=== PATIENT | female | born 1960 ===

== ENCOUNTER 2017-01-07 18:03 | Emergency (ER) | payer BC ==
[2017-01-07 18:59] VITALS: BP 121/71
--- NOTE | 2017-01-07 19:40 | UC ---
Laceration HPI - History Of Current Complaint Chief Complaint: UCLaceration Stated Complaint: RIGHT LEG LAC (DYE) Time Seen by Provider: 01/07/17 19:33 Hx Obtained From: Patient Laceration Location: Generalized - right lower dye. Mechanism Of Injury: Blunt Trauma - on the edge of a boat trying to climb in. Onset/Duration: Sudden Onset - 5:30 PM, Still Present Severity: Moderate Aggravating Factors: Movement Full Body (No Head): 1 - Stellate laceration 5.5x2.5x1 cm - Allergies/Home Medications Allergies/Adverse Reactions: Allergies Allergy/AdvReac Type Severity Reaction Status Date / Time No Known Allergies Allergy Verified 01/07/17 18:59 Home Medications: Home Medications Sulfamethox/Trimethoprim DS* [Bactrim DS 800/160 TAB*] 1 tab PO BID 01/07/17 [ History Confirmed 01/07/17] PMH/Surg Hx/FS Hx/Imm Hx Previously Healthy: Yes - Surgical History Surgical History: None - Family History Known Family History: Negative: Cardiac Disease, Hypertension, Diabetes - Social History Occupation: Employed Full-time Lives: With Family Alcohol Use: Weekly Substance Use Type: None Smoking Status (MU): Former Smoker Have You Smoked in the Last Year: No When Did the Patient Quit Smoking/Using Tobacco: 25 YRS Review of Systems All Other Systems Reviewed And Are Negative: Yes Physical Exam Triage Information Reviewed: Yes Appearance: Well-Appearing, No Pain Distress, Well-Nourished Vital Signs: Initial Vital Signs Temp 98.8 F 01/07/17 18:50 Pulse 71 01/07/17 18:50 Resp 16 01/07/17 18:50 BP 121/71 01/07/17 18:50 Pulse Ox 100 01/07/17 18:50 Vital Signs Reviewed: Yes Eyes: Positive: Conjunctiva Clear Neck exam: Normal Respiratory Exam: Normal Cardiovascular Exam: Normal Musculoskeletal Exam: Normal Neurological Exam: Normal Psychological Exam: Normal Skin: Positive: Other - laceration. Laceration Repair - Laceration Repair 1 Description: Irregular Laceration Size After Repair: Length (cm) - 8 cm total Debridement: Non-viable skin debrided. Type Injection: Local Anesthesia Used: 2.0% Lido Additive Used (in ml): Epi Cleansing Completed Via Routine Prep: Yes Irrigation With Pressure Irrigation Device: Yes Closure Material: Sutures Closure Method: Multilayer Suture Of: Skin - 11 sutures running left to right and up the middle part of the lacertation 8 sutures running right to left in the middle., SQ - 2 3-0 vicryl simple interrupted buried. Suture Type: Nylon - 4-0, Vicryl - 3-0 Laceration Course/Dx - Differential Dx - Laceration/Wound Differental Diagnoses: Hematoma, Laceration, Puncture Wound Provider Diagnoses: Open wound right lower leg. Complex laceration repair. Discharge - Discharge Plan Condition: Stable Disposition: HOME Patient Education Materials: Laceration (ED), Care For Your Stitches (ED) Referrals: Non Staff,Doctor [Primary Care Provider] - (12 days for suture removal.) Additional Instructions: It is ok to get it wet to shower but put antibiotic ointment on with telfa immediately after. Change the dressing twice a day and use the poncho wrap to hold the bandage on. Use Copp[employer]one Water[employer]ies Pure and Simple sunscreen for the rest of the summer to help with healing.
[2017-01-07] MEDS ORDERED: Lidocaine 2% W/EPI 1:100,000* 20 ML MDV INJ ONE (19:45)
[2017-01-07] MEDS ORDERED: Tetan/Diph/Pertus SYR(Tdap)* 0.5 ML SYR(BOOSTRIX) use SYR IM ONE (19:48)
== END 2017-01-07 20:57 | disposition home or self-care (01) ==
LOC: UCCORT 18:03
DX: S81.811A Laceration without foreign body, right lower leg, initial encounter (principal); Z87.891 Personal history of nicotine dependence; W22.8XXA Striking against or struck by other objects, initial encounter; Y93.39 Activity, other involving climbing, rappelling and jumping off; Y92.9 Unspecified place or not applicable
CPT/HCPCS: 13121; 90715; 99201; G0463

== ENCOUNTER 2017-01-09 10:09 | Emergency (ER) | payer BC ==
[2017-01-09 11:56] VITALS: BP 108/64
--- NOTE | 2017-01-09 12:19 | UC ---
HPI Wound/Suture Re-check - HPI Summary HPI Summary: 56 yo female 2 days s/p lac to right dye hit leg on pontoon boat today dye red still having significant pain using a can to ambulate still on antibiotic for right dye infection (bactrim bs) - History Of Current Complaint Chief Complaint: UCLaceration Stated Complaint: DYE LAC Time Seen by Provider: 01/09/17 12:10 Hx Obtained From: Patient Onset/Duration: Sudden Onset Severity: Moderate Pain Intensity: 8 Pain Scale Used: 0-10 Numeric - Allergies/Home Medications Allergies/Adverse Reactions: Allergies Allergy/AdvReac Type Severity Reaction Status Date / Time No Known Allergies Allergy Verified 01/07/17 18:59 PMH/Surg Hx/FS Hx/Imm Hx Previously Healthy: Yes - Surgical History Surgical History: None - Family History Known Family History: Negative: Cardiac Disease, Hypertension, Diabetes - Social History Alcohol Use: Weekly Substance Use Type: None Smoking Status (MU): Former Smoker Have You Smoked in the Last Year: No When Did the Patient Quit Smoking/Using Tobacco: 25 YRS Review of Systems Constitutional: Negative Skin: Negative Eyes: Negative ENT: Negative Respiratory: Negative Cardiovascular: Negative Gastrointestinal: Negative Genitourinary: Negative Motor: Negative Neurovascular: Negative Musculoskeletal: Negative Neurological: Negative Psychological: Negative All Other Systems Reviewed And Are Negative: Yes Physical Exam Triage Information Reviewed: Yes Appearance: Well-Appearing, No Pain Distress, Well-Nourished Vital Signs: Initial Vital Signs Temp 98.4 F 01/09/17 11:51 Pulse 85 01/09/17 11:51 Resp 18 01/09/17 11:51 BP 108/64 01/09/17 11:51 Pulse Ox 99 01/09/17 11:51 Vital Signs Reviewed: Yes Eyes: Positive: Conjunctiva Clear ENT: Positive: Hearing grossly normal. Negative: Nasal congestion, Nasal drainage, Trismus, Muffled/hoarse voice Respiratory: Positive: Lungs clear, Normal breath sounds, No respiratory distress, No accessory muscle use Cardiovascular: Positive: RRR, No Murmur Musculoskeletal: Positive: ROM Intact, No Edema Neurological: Positive: Alert Psychological Exam: Normal Skin Exam: Other - see image Course/Dx - Course Course Of Treatment: WILL RECHECK WITH ME ON 01/11 IN [facility] - Differential Dx - Laceration/Wound Provider Diagnoses: RIGHT DYE CELLULITIS Discharge - Discharge Plan Condition: Stable Disposition: HOME Prescriptions: Cephalexin CAP* [Keflex CAP*] 500 mg PO QID #28 cap Ibuprofen TAB* [Motrin TAB*] 600 mg PO Q6H PRN #40 tab PRN Reason: Pain Patient Education Materials: Cellulitis (ED) Referrals: Non Staff,Doctor [Primary Care Provider] - Additional Instructions: rest elevate motrin as needed for pain a culture is pending gently clean twice daily with soap and water antibiotic ointment (bactroban) thin film non stick dressing you may keep laceration open to air periodically RECHECK IN 2 DAYS Images Front/Back of Body, Lg ([place]): 1 - area of erythema surrounding right dye
--- NOTE | 2017-01-09 12:47 | RAD ---
Indication: Trauma/cellulitis. Comparison: No relevant prior exams available on the [facility] PACS for comparison. Technique: AP and lateral views RIGHT lower leg. REPORT AND IMPRESSION: Soft tissue swelling most prominent anteriorly and laterally. No conspicuous foreign body or subcutaneous emphysema. Negative for fracture or malalignment. Unremarkable osseous structures.
[2017-01-09] MEDS ORDERED: Cephalexin CAP* 500 MG PO ONE (12:50)
[2017-01-09] MEDS ORDERED: Mupirocin 2% OINT* TUBE TOPICAL ONE (12:51)
== END 2017-01-09 13:15 | disposition home or self-care (01) ==
LOC: UCEAST 10:09
DX: L03.115 Cellulitis of right lower limb (principal); Z87.891 Personal history of nicotine dependence
CPT/HCPCS: 87070; 87205; 99213; A9270-GY; G0463

== ENCOUNTER 2017-01-11 14:50 | Emergency (ER) | payer BC ==
[2017-01-11 15:09] VITALS: BP 100/50
--- NOTE | 2017-01-11 15:53 | UC ---
HPI Wound/Suture Re-check - HPI Summary HPI Summary: seen by me 48 hrs ago with cellulitis s/p lac repair started on keflex swelling and redness worse no fever no myalgias no n/v/d - History Of Current Complaint Chief Complaint: UCSkin Stated Complaint: RE-CK SUTURES (DR CLIFTON) Time Seen by Provider: 01/11/17 15:22 Hx Obtained From: Patient Onset/Duration: Sudden Onset Severity: Mild Pain Intensity: 4 Pain Scale Used: 0-10 Numeric - Allergies/Home Medications Allergies/Adverse Reactions: Allergies Allergy/AdvReac Type Severity Reaction Status Date / Time No Known Allergies Allergy Verified 01/11/17 15:09 PMH/Surg Hx/FS Hx/Imm Hx Previously Healthy: Yes - Surgical History Surgical History: None - Family History Known Family History: Negative: Cardiac Disease, Hypertension, Diabetes - Social History Alcohol Use: Weekly Substance Use Type: None Smoking Status (MU): Former Smoker Have You Smoked in the Last Year: No When Did the Patient Quit Smoking/Using Tobacco: 25 YRS Review of Systems Constitutional: Negative Skin: Negative Eyes: Negative ENT: Negative Respiratory: Negative Cardiovascular: Negative Gastrointestinal: Negative Genitourinary: Negative Motor: Negative Neurovascular: Negative Musculoskeletal: Negative Neurological: Negative Psychological: Negative All Other Systems Reviewed And Are Negative: Yes Physical Exam Triage Information Reviewed: Yes Appearance: Well-Appearing Vital Signs: Initial Vital Signs Temp 99.6 F 01/11/17 15:05 Pulse 75 01/11/17 15:05 Resp 16 01/11/17 15:05 BP 100/50 01/11/17 15:05 Pulse Ox 100 01/11/17 15:05 Vital Signs Reviewed: Yes Eyes: Positive: Conjunctiva Clear ENT: Positive: Hearing grossly normal. Negative: Nasal congestion, Nasal drainage, Trismus, Muffled/hoarse voice Neck: Positive: Supple Respiratory: Positive: No respiratory distress, No accessory muscle use Cardiovascular: Positive: Pulses Normal Musculoskeletal: Positive: ROM Intact, Edema @ Neurological: Positive: Alert Psychological Exam: Normal Skin Exam: Other - worsening cellulitis/increased redness and swelling Course/Dx - Course Course Of Treatment: sutures removed. recultured - Differential Dx - Laceration/Wound Provider Diagnoses: cellulitis right dye Discharge - Discharge Plan Condition: Stable Disposition: HOME Patient Education Materials: Cellulitis (ED) Referrals: Non Staff,Doctor [Primary Care Provider] - Additional Instructions: rest elevate elevate elevate warm soapy compresses 4-8 x day recheck tomorrow we removed your sutures today due to the infection continue keflex
== END 2017-01-11 16:09 | disposition home or self-care (01) ==
LOC: UCCORT 14:50
DX: L03.115 Cellulitis of right lower limb (principal); Z87.891 Personal history of nicotine dependence
CPT/HCPCS: 87070; 87205; 99212; G0463